=== PATIENT | male | born 1995 | race Two or more races ===

== ENCOUNTER 2019-07-06 14:32 | Emergency (ER) | payer SELFPAY ==
[~2019-07-06] VITALS: Ht 185.4 cm; Wt 74.8 kg
[2019-07-06 15:00] VITALS: BP 136/61
[2019-07-06] MEDS ORDERED: PROCHLORPERAZINE 10 MG/2 ML VIAL. IM STA (15:29)
[2019-07-06] MEDS ORDERED: diphenhydrAMINE 50 MG/ML VIAL IM STA (15:29)
[2019-07-06] MEDS ORDERED: BUTALB/APAP/CAFEIN 50/325/40MG TABLET. PO STA (15:29)
[2019-07-06] MEDS ORDERED: KETOROLAC 30 MG/ML VIAL. IM STA (15:29)
--- NOTE | 2019-07-06 15:36 | PHYS DOC ---
Past Medical History Past Medical History: No Pertinent History Past Surgical History: No Surgical History Alcohol Use: Occasionally Drug Use: None Adult General Chief Complaint Chief Complaint: CHEST WALL PAIN HPI HPI Patient is a 23 year old male who presents with right-sided headache and numbness and tingling going down his left arm has been ongoing for 2 days. The patient rates his pain as 9 out of 10 in severity and sharp. The patient states he does not get headaches often but however he did get one several years ago that was really bad. Denies chest pain. Review of Systems Review of Systems Constitutional: Denies fever or chills [] Eyes: Denies change in visual acuity, redness, or eye pain [] HENT: Denies nasal congestion or sore throat [] Respiratory: Denies cough or shortness of breath [] Cardiovascular: No additional information not addressed in HPI [] GI: Denies abdominal pain, nausea, vomiting, bloody stools or diarrhea [] : Denies dysuria or hematuria [] Musculoskeletal: Denies back pain or joint pain [] Integument: Denies rash or skin lesions [] Neurologic: Reports headache, Reports tingling in his L face and L arm that started at the same time as headache. Otherwise Neuro is intact. Endocrine: Denies polyuria or polydipsia [] Complete systems were reviewed and found to be within normal limits, except as documented in this note. Current Medications Current Medications Current Medications Medications (Trade) Dose Ordered Sig/Billy Start Time Stop Time Status Last Admin Dose Admin Acetaminophen/ Butalbital/ Caffeine (Fioricet) 1 tab 1X STAT 07/06/19 15:29 07/06/19 15:41 DC 07/06/19 15:46 1 TAB Diphenhydramine HCl (Benadryl) 25 mg 1X STAT 07/06/19 15:29 07/06/19 15:41 DC 07/06/19 15:46 25 MG Ketorolac Tromethamine (Toradol 30mg Vial) 30 mg 1X STAT 07/06/19 15:29 07/06/19 15:41 DC 07/06/19 15:46 30 MG Prochlorperazine Edisylate (Compazine) 10 mg 1X STAT 07/06/19 15:29 07/06/19 15:41 DC 07/06/19 15:46 10 MG Allergies Allergies Allergies Coded Allergies Type Severity Reaction Last Updated Verified No Known Drug Allergies 07/06/19 No Physical Exam Physical Exam Constitutional: Well developed, well nourished, no acute distress, non-toxic appearance. [] HENT: Normocephalic, atraumatic, bilateral external ears normal, oropharynx moist, no oral exudates, nose normal. [] Eyes: PERRLA, EOMI, conjunctiva normal, no discharge. [] Skin: Warm, dry, no erythema, no rash. [] Neurologic: Alert and oriented X 3, normal motor and sensory function. Psychologic: Affect normal, judgement normal, mood normal. [] Current Patient Data Vital Signs Vital Signs Date Time Temp Pulse Resp B/P (MAP) Pulse Ox O2 Delivery O2 Flow Rate FiO2 07/06/19 15:00 97.8 67 12 136/61 (86) 98 Room Air 97.8 EKG EKG [] Radiology/Procedures Radiology/Procedures [] Course & Med Decision Making Course & Med Decision Making Pertinent Labs and Imaging studies reviewed. (See chart for details) Appears likely to be having a migraine headache. Will give IM headache cocktail and Fioricet. Will wait and see if medications improve symptoms. Medications made headache disappears and numbness. Appears patient had an atypical migraine. Dragon Disclaimer Dragon Disclaimer This electronic medical record was generated, in whole or in part, using a voice recognition dictation system. Departure Departure Impression: Primary Impression: Migraine Disposition: 01 HOME, SELF-CARE Condition: STABLE Referrals: NO PCP (PCP) Patient Instructions: Migraine Headache Additional Instructions: Thank you for visiting [facility]. We appreciate you trusting us with your care. If any additional problems come up don't hesitate to return to visit us. Please follow up with your primary care provider so they can plan additional care if needed and know about the problem that you had. If symptoms worsen come back to the Emergency Department. Any concerning symptoms that start such as chest pain, shortness of air, weakness or numbness on one side of the body, running high fevers or any other concerning symptoms return to the ER. Problem Qualifiers Primary Impression: Migraine Migraine type: unspecified Status migrainosus presence: without status migrainosus Intractability: not intractable Qualified Codes: G43.909 - Migraine, unspecified, not intractable, without status migrainosus DANIEL ARGUELLO APRN Jul 06, 2019 15:36
== END 2019-07-06 16:20 | disposition home or self-care (01) ==
LOC: ER 14:32 → EDBD 14:32 → ER 16:20
DX: G43.909 Migraine, unspecified, not intractable, without status migrainosus (principal); Z79.899 Other long term (current) drug therapy
CPT/HCPCS: 96372; 99284; J0780; J1200; J1885

== ENCOUNTER 2019-12-07 20:59 | Emergency (ER) | payer SELFPAY ==
[~2019-12-07] VITALS: Ht 172.7 cm; Wt 98.0 kg
[2019-12-07] MEDS ORDERED: fentaNYL PF VIAL 100 MCG/2 ML VIAL IV ONE (21:30)
[2019-12-07] MEDS ORDERED: ONDANSETRON PF 4 MG/2 ML VIAL. IV ONE (21:30)
[2019-12-07 21:42] VITALS: BP 129/64
--- NOTE | 2019-12-07 21:53 | RAD ---
WRIST BILAT 3V DATE: 12/07/2019 9:26 PM INDICATION: Reason: trauma / Spl. Instructions: / History: COMPARISON: None. FINDINGS: Right: Acute comminuted and displaced distal radius fracture with extension to the articular surface of the radius. Old healed fifth metacarpal fracture. Left: Acute comminuted and displaced distal radius fracture with extension to the articular surface of the radius. IMPRESSION: Bilateral acute comminuted distal radius fractures. Electronically signed by: Nando River MD (12/07/2019 9:51 PM) [id number]
--- NOTE | 2019-12-07 22:05 | PHYS DOC ---
Past Medical History Past Medical History: No Pertinent History Past Surgical History: No Surgical History Smoking Status: Never Smoker Alcohol Use: Occasionally Drug Use: None General Adult EDM: Chief Complaint: PAIN CONTROL HPI: HPI: Patient is a 24-year-old male who fell on outstretched hands a couple of days ago and has bilateral distal radius fractures that are comminuted. He has an appointment with an orthopedic surgeon tomorrow. He has oxycodone to take at home however the pain was pretty intense tonight and he came here to see if we can get the pain under control. Review of Systems: Review of Systems: Constitutional: Denies fever or chills. [] Eyes: Denies change in visual acuity. [] HENT: Denies nasal congestion or sore throat. [] Respiratory: Denies cough or shortness of breath. [] Cardiovascular: Denies chest pain or edema. [] GI: Denies abdominal pain, nausea, vomiting, bloody stools or diarrhea. [] : Denies dysuria. [] Musculoskeletal: Per HPI. [] Integument: Denies rash. [] Neurologic: Denies headache, focal weakness or sensory changes. [] Endocrine: Denies polyuria or polydipsia. [] Lymphatic: Denies swollen glands. [] Psychiatric: Denies depression or anxiety. [] Heart Score: Risk Factors: Risk Factors: DM, Current or recent (<one month) smoker, HTN, HLP, family history of CAD, obesity. Risk Scores: Score 0 - 3: 2.5% MACE over next 6 weeks - Discharge Home Score 4 - 6: 20.3% MACE over next 6 weeks - Admit for Clinical Observation Score 7 - 10: 72.7% MACE over next 6 weeks - Early Invasive Strategies Current Medications: Current Medications Medications (Trade) Dose Ordered Sig/[facility] Start Time Stop Time Status Last Admin Dose Admin Fentanyl Citrate (Fentanyl 2ml Vial) 50 mcg 1X ONCE 12/07/19 21:30 12/07/19 21:31 DC 12/07/19 21:40 50 MCG Ondansetron HCl (Zofran) 4 mg 1X ONCE 12/07/19 21:30 12/07/19 21:31 DC 12/07/19 21:40 4 MG Allergies: Allergies: Allergies Coded Allergies Type Severity Reaction Last Updated Verified No Known Drug Allergies 07/06/19 No Physical Exam: PE: Constitutional: Well developed, well nourished, moderate distress, non-toxic appearance. [] HENT: Normocephalic, atraumatic, bilateral external ears normal, oropharynx moist, no oral exudates, nose normal. [] Eyes: PERRLA, EOMI, conjunctiva normal, no discharge. [] Neck: Normal range of motion, no tenderness, supple, no stridor. [] Cardiovascular:Heart rate regular rhythm, no murmur [] Lungs & Thorax: Bilateral breath sounds clear to auscultation [] Abdomen: Bowel sounds normal, soft, no tenderness, no masses, no pulsatile masses. [] Skin: Warm, dry, no erythema, no rash. [] Back: No tenderness, no CVA tenderness. [] Extremities: Bilateral volar wrist splints he has quite a bit of swelling in bot h wrists [] Neurologic: Alert and oriented X 3, normal motor function, normal sensory function, no focal deficits noted. [] Psychologic: Affect normal, judgement normal, mood normal. [] Current Patient Data: Vital Signs: Vital Signs Date Time Temp Pulse Resp B/P (MAP) Pulse Ox O2 Delivery O2 Flow Rate FiO2 12/07/19 21:40 16 97 Room Air 12/07/19 21:15 98.2 68 139/66 (90) 98.2 EKG: EKG: [] Radiology/Procedures: Radiology/Procedures: []REASON: trauma PROCEDURE: WRIST BILAT 3V WRIST BILAT 3V DATE: 12/07/2019 9:26 PM INDICATION: Reason: trauma / Spl. Instructions: / History: COMPARISON: None. FINDINGS: Right: Acute comminuted and displaced distal radius fracture with extension to the articular surface of the radius. Old healed fifth metacarpal fracture. Left: Acute comminuted and displaced distal radius fracture with extension to the articular surface of the radius. IMPRESSION: Bilateral acute comminuted distal radius fractures. Course & Med Decision Making: Course & Med Decision Making Pertinent Labs and Imaging studies reviewed. (See chart for details) ED course: Evaluation reveals a 24-year-old male with bilateral wrist fractures. He was given IV fentanyl and Zofran during his stay in the department which did help alleviate his pain. I explained to his family member who was his food assembler that he needed to keep his follow-up appointment with the orthopedic surgeon tomorrow and to use oxycodone as directed for the discomfort. I did explain that I thought the splint that we put on tonight would be more comfortable for him. [Procedure bilateral OCL volar wrist splints The splints that the patient was wearing were not in good shape and I think a large reason why he was in so much pain we went ahead and replaced the splints after bilateral OCL volar splints were placed I checked and the patient was neurovascular intact] [place] Disclaimer: Snehal Disclaimer: This electronic medical record was generated, in whole or in part, using a voice recognition dictation system. Departure Departure Impression: Primary Impression: Wrist fracture, bilateral Qualified Codes: S62.101A - Fracture of unspecified carpal bone, right wrist, initial encounter for closed fracture; S62.102A - Fracture of unspecified carpal bone, left wrist, initial encounter for closed fracture Disposition: 01 HOME, SELF-CARE Condition: STABLE Referrals: NO PCP (PCP) Patient Instructions: Wrist Fracture Additional Instructions: it is extremely important that you follow-up with the orthopedic surgeon as scheduled for tomorrow JUN ODONNELL DO December 07, 2019 22:05
== END 2019-12-07 22:10 | disposition home or self-care (01) ==
LOC: ER 20:59
DX: S52.502A Unspecified fracture of the lower end of left radius, initial encounter for closed fracture (principal); S52.501A Unspecified fracture of the lower end of right radius, initial encounter for closed fracture; X58.XXXA Exposure to other specified factors, initial encounter; Y93.89 Activity, other specified; Y92.89 Other specified places as the place of occurrence of the external cause; Y99.8 Other external cause status
CPT/HCPCS: 29125; 73110; 96374; 96375; 99284; J2405; J3010

== ENCOUNTER 2020-04-13 22:16 | Emergency (ER) | payer SELFPAY ==
[~2020-04-13] VITALS: Ht 167.6 cm; Wt 100.0 kg
--- NOTE | 2020-04-14 01:35 | PHYS DOC ---
Past Medical History Past Medical History: No Pertinent History Past Surgical History: Other Additional Past Surgical Histo: left hand and right wrist surgery Smoking Status: Never Smoker Alcohol Use: Occasionally Drug Use: None General Adult EDM: Chief Complaint: POST-OP PROBLEM HPI: HPI: Patient is a 24 year old male who had right wrist surgery on 04/13 presents with pain, weakness and numbness in the right hand. Patient states he has profound weakness and cannot extend his fingers and some moderate pain and has numbness predominantly in the right fourth and fifth fingers. Patient also noticed some bleeding coming from the surgical incision. Pain is moderate with range of motion mild at rest. Review of Systems: Review of Systems: Constitutional: Denies fever or chills. [] Eyes: Denies change in visual acuity. [] HENT: Denies nasal congestion or sore throat. [] Respiratory: Denies cough or shortness of breath. [] Cardiovascular: Denies chest pain or edema. [] GI: Denies abdominal pain, nausea, vomiting, bloody stools or diarrhea. [] : Denies dysuria. [] Musculoskeletal: Denies back pain or joint pain. [] Integument: Denies rash. [] Neurologic: Denies headache, patient complains of weakness and numbness to the right hand Endocrine: Denies polyuria or polydipsia. [] Lymphatic: Denies swollen glands. [] Psychiatric: Denies depression or anxiety. [] Heart Score: Risk Factors: Risk Factors: DM, Current or recent (<one month) smoker, HTN, HLP, family history of CAD, obesity. Risk Scores: Score 0 - 3: 2.5% MACE over next 6 weeks - Discharge Home Score 4 - 6: 20.3% MACE over next 6 weeks - Admit for Clinical Observation Score 7 - 10: 72.7% MACE over next 6 weeks - Early Invasive Strategies Allergies: Allergies: Allergies Coded Allergies Type Severity Reaction Last Updated Verified No Known Drug Allergies 04/13/20 No Physical Exam: PE: Constitutional: Well developed, well nourished, no acute distress, non-toxic appearance. [] HENT: Normocephalic, atraumatic, bilateral external ears normal, no trismus nose normal. [] Eyes: PERRLA, EOMI, conjunctiva normal, no discharge. [] Neck: Normal range of motion, no tenderness, supple, no stridor. [] Cardiovascular:Heart rate regular rhythm, peripheral pulses intact, cap refill is brisk Lungs & Thorax: Bilateral breath sounds clear, no respiratory distress Abdomen:, soft, no tenderness, no masses, no pulsatile masses. [] Skin: Warm, dry, no erythema, no rash. [] Back: No tenderness, no CVA tenderness. [] Extremities: No tenderness, no cyanosis, no clubbing, splint intact on the right arm, right fingers are held in partial flexion Neurologic: Alert and oriented X 3, weakness to the right hand, decreased sensation of the right fingers especially on the right fourth and fifth fingers. Psychologic: Affect normal, judgement normal, mood normal. [] Current Patient Data: Vital Signs: Vital Signs Date Time Temp Pulse Resp B/P (MAP) Pulse Ox O2 Delivery O2 Flow Rate FiO2 04/13/20 22:40 98.6 109 20 142/83 (102) 95 Room Air 98.6 EKG: EKG: [] Radiology/Procedures: Radiology/Procedures: [] Course & Med Decision Making: Course & Med Decision Making Pertinent Labs and Imaging studies reviewed. (See chart for details) [] 24-year-old male who presents with swelling and pain in his right hand after surgery on April 13. Surgery was done at an [facility] facility in [place]. Surgeon was Dr. Garcia. Upon her my assessment I took down the dressing and noted swelling to the right forearm, the incision had a scant amount of blood but no active bleeding. Incision on the volar side was intact. Patient has numbness in the fingers especially on the fourth and fifth finger. Patient is unable to fully extend his right fingers and has significant difficulty with abduction abduction as well. I discussed the case with Dr. Rizvi who suggest patient see a hand surgeon. I discussed the case with the ER doc [facility] as the surgery was done at an [facility] facility and Dr. Garcia is on staff there who suggested I talk with the on- call orthopedic doctor. I then discussed the case with Kyle Short who is the [facility] covering for Dr. Garcia who says that the surgical backup is a foot and ankle specialist. I then discussed the case with Dr. De Jesus at [facility] who will accept the transfer. The right forearm is swollen and considerations need to be made for compartment syndrome. I am highly concerned of the medial nerve injury, this may be due to the block or an injury from surgery. On multiple reassessment patient still unable to extend his fingers and has the numbness. Instructed nurse to loosely wrap the dressing and then the patient has been accepted at [facility] where they will have a hand surgeon evaluate. Snehal Disclaimer: Snehal Disclaimer: This electronic medical record was generated, in whole or in part, using a voice recognition dictation system. Departure Departure Impression: Primary Impression: Injury of right median nerve Disposition: 02 TRANSFER [facility] ([facility]) Condition: STABLE Referrals: NO PCP (PCP) YURY DE SANTIAGO MD Apr 14, 2020 01:35
[2020-04-14 02:51] VITALS: BP 151/72
== END 2020-04-14 03:09 | disposition short-term general hospital (02) ==
LOC: ER 22:16
DX: S64.11XA Injury of median nerve at wrist and hand level of right arm, initial encounter (principal); X58.XXXA Exposure to other specified factors, initial encounter; Y93.89 Activity, other specified; Y92.89 Other specified places as the place of occurrence of the external cause; Y99.8 Other external cause status
CPT/HCPCS: 99285